=== PATIENT | female | born 1985 | race Caucasian/White ===

== ENCOUNTER → 2016-03-01 | Outpatient (CLI) | payer OTHER ==
--- NOTE | 2016-03-01 16:19 | US ---
March 01, [address] Rushing, Thank you for allowing us to see your patient regarding anatomy. As you know she is a 30 year-old gr avida 1, para 0. Her due date is 07/18/16 which is based on . Her current gestational age based o n this dating is 20 weeks 1 days. She was seen previously for sequential screen which was normal with 1:1700 DSR. Number of fetuses: 1 Placental location: posterior 1.4 cm from the os Cord Insertion: Central presentation: vertex Cervix: 3.2-3.7 cm MVP: 4.9 cm The adnexa were evaluated. No pathology was seen. Right ovary not seen Left ovary seen Measurements: Biparietal diameter: 50 mm 21 weeks, 1 days Head circumference: 176 mm 20 weeks, 1 days Abdominal circumference: 156 mm 20 weeks, 6 days Femur length: 32 mm 20 weeks, 1 days Humerus length: 31 mm 20 weeks, 2 days Transcerebellar diameter: 21 mm 19 weeks, 6 days Average ultrasound age: 20 weeks, 4 days Estimated weight: 352 gm weight percentile: 61 % ANATOMY Upper extremities: Normal Lower extremities: Normal Supratentorial brain: Normal Lateral ventricle: 5.0 mm Posterior fossa: Normal Cisterna Magna: 4.0 mm Spine: Normal Nuchal fold: 4.1 mm Face: Normal nose, lip, profile, alveolar ridge Heart: Normal rate, rhythm, axis, 4 chamber view, LVOT, RVOT, IVS AA, DA seen. Inflows seen. Limit ed 3VT view. LVEIF seen,. Stomach: Normal Diaphragm: NOrmal Umbilical cord insertion: Normal Right kidney: Normal Left kidney: Normal Bladder: Normal Number of cord vessels: Three. Impression: This is a 30 year-old 1, para 0 at 20 weeks, 1 days gestation. 1. SIUP with biometry cw ga of 20 weeks. NL MVP. No anatomic abnormalities noted. 2. An echogenic intracardiac focus (EIF) was noted. This focus represents a prominent papillary musc le that is of no clinical significance except for a weak association with Down syndrome. No other mar kers for aneuploidy were visualized. In the absence of other sonographic markers or a high risk hist ory for Down syndrome, this is likely an incidental finding. The finding was discussed with the patient and results of her sequential screen were reviewed. I exp lained that the only way to exclude the diagnosis of a chromosome abnormality is with amniocentesis. Risks and benefits of amniocentesis were reviewed. Given the normal ultrasound findings otherwise a nd her reassuring sequential screen the risk of procedure related loss is likely greater t jacob the risk of Down syndrome with an EIF as an isolated finding. 3. Placenta 1.4 cm from the os- I reviewed that with newest guidelines this is considered normal but if you desire final placental location evaluation, repeat evaluation could occur at 28-30 weeks with growth. Thank you for allowing me to see your patient. Approximately 15 minutes was spent with the patient a nd 15 was spent discussing her issues. Roxanna Herrera MD Diagnosis Division of Maternal Medicine Department of Obstetrics and Gynecology [facility]
--- NOTE | 2016-03-01 19:15 | US ---
Complete Detailed Obstetrical Sonography Clinical History: 30-year-old female presenting for a anatomic screen and biometry. TECHNIQUE: A curvilinear 5 MHz transducer was used to sonographically evaluate the fetus and the plac enta. M-Mode Doppler is used. Multiple cine clips are stored on PACS. Dr. Roxanna Herrera is present. S upplementary endovaginal pelvic sonography of the maternal cervix is also provided. COMPARISON STUDY: First trimester obstetrical sonography, dated January 05, 2016. LMP: October 12, 2015, indicating an age of 20 weeks 1 day, and an estimated date of delivery of July 18, 2016. FINDINGS: Again, there is a single viable intrauterine gestation, with the fetus cephalic in presenta tion. The maternal cervical length and the placental tip positioning was endovaginally assessed, and the length of the cervix ranges between 3.2 and 3.7 cm. The tip of the placenta terminates 1.4 cm fro m the cervical os, and is seen posteriorly. The heart rate is 144 bpm. The amniotic fluid volum e is appropriate, with a maximal vertical pocket of 4.9 cm. The maternal left ovary measures 2.7 x 1. 4 x 3.3 cm, and the right adnexal region is obscured by bowel gas, and the maternal right ovary is no t identified. The anatomic survey reveals a normal appearance to the supra- and infratentorial structures. Th e lateral ventricular diameter is 5.0 mm, the cisterna magna is 4.0 mm, and the nuchal fold is 4.1 mm . The spine is evaluated in sagittal and transverse planes, and appears normal. The nasolabial anatomy and the alveolar ridge are normal. A sagittal facial profile image is normal, and a ariana al length is 6.7 mm. There is a 4 chambered heart with right and left ventricular outflow tracts, int erventricular septum, aortic and ductal arch, and inflow tracts with a limited three-vessel tracheal view. A left ventricular echogenic intracardiac focus is incidentally observed. The diaphragm is inta ct. The stomach, right and left kidneys, urinary bladder, three-vessel cord, cord insertion, and the upper and lower extremities appear normal. biometry is as follows: The biparietal diameter is 50 mm, corresponding to an age of 21 weeks 1 day +/- 1 week 6 days, which is at the 84th percentile. The head circumference is 176 m, corresponding to an age of 20 weeks 1 day +/- 1 week 4 days, which i s at the 39th percentile. The abdominal circumference is 156 mm, corresponding to an age of 20 weeks 6 days +/- 2 weeks 1 day, which is at the 65th percentile. The femur length is 32 mm, corresponding to an age of 20 weeks 1 day +/- 1 week 6 days, which is at t he 37th percentile. The humeral length is 31 mm, corresponding to an age of 20 weeks 2 days and the transverse cerebellar diameter is 21 mm, corresponding to an age of 19 weeks 6 days +/- 1 week 0 days, for a composite ges tational age of 20 weeks 4 days. This is concordant with menstrual dating. The estimated weight is 352 grams +/- 51 grams, which is 12 ounces +/- 2 ounces, which is at th e 61st percentile. Head circumference to abdominal circumference ratio is normal, measuring 1.13. Femur length to bipari etal diameter ratio is normal measuring 65%, and the femur length to abdominal circumference ratio is 21%. IMPRESSION: There is a single viable intrauterine gestation with concordant biometry and an appropria te amniotic fluid volume with the only anatomic anomaly being a left ventricular echogenic intr acardiac focus, which is seen in isolation with no other aneuploidy markers observed, and of dubious significance. Additionally, the placenta is located posteriorly with the tip only 1.4 cm from the cer vical os. Please refer to Dr. Herrera's specific assessments and recommendations for follow-up.
== END ==
LOC: FIMAGING 14:26
PROVIDERS: ATTEND Obstetrics & Gynecology
DX: Z34.02 Encounter for supervision of normal first pregnancy, second trimester (principal); Z3A.20 20 weeks gestation of pregnancy

== ENCOUNTER → 2016-05-09 | Outpatient (CLI) | payer OTHER | LOC: FIMAGING 09:21 | PROVIDERS: ATTEND Obstetrics & Gynecology | DX: Z34.03 Encounter for supervision of normal first pregnancy, third trimester (principal); Z3A.30 30 weeks gestation of pregnancy ==

== ENCOUNTER 2016-07-08 07:32 | Observation (INO) | payer OTHER ==
--- NOTE | 2016-07-08 08:24 | SOAPPROG ---
SOAP Progress Note Assessment/Plan: Assessment: G1 at 38w4d with dec FM, now resolved Reactive reassuring tracing Fluid WNL Plan: Routine precautions discussed F/u next week as scheduled with Dr. Rushing 07/08/16 08:23 Subjective: G1 at 38w4d, pt of Dr. Rushing's, here for dec FM this AM. After waking up and eating breakfast she hadn't felt baby move. However now after arriving at L&D the baby is moving. c/b Rh neg, s/p Rhogam. Normal genetic screening. Was 1 cm in office. Feeling rare ctx. No LOF or VB. Objective: VS: WNL (Tracevue) Gen: NAD Resp: unlabored CV: RRR Abd: soft, nontender, EFW 7.5# by heidy's, vtx Ext: no edema FHR baseline 130, mod kim, + acc, no decel [place]: 2 ctx Bedside US: Vertex Ant placenta Fluid adequate, DVP = 5.1 cm - Time Spent With Patient Time Spent With Patient: 20 minutes ICD10 Worksheet Patient Problems: Problems Problem Status Onset Decreased movement Acute - ICD10 Problem Qualifiers (1) Decreased movement
== END 2016-07-08 08:50 | disposition home or self-care (01) ==
LOC: FLD 07:32
PROVIDERS: ADMIT Obstetrics & Gynecology; ATTEND Obstetrics & Gynecology
DX: O36.8130 Decreased fetal movements, third trimester, not applicable or unspecified (principal); Z3A.38 38 weeks gestation of pregnancy
CPT/HCPCS: 59025; G0378

== ENCOUNTER 2016-07-20 20:42 | Inpatient (IN) | payer OTHER ==
[2016-07-21] MEDS ORDERED: PROMETHAZINE HCL 25 MG TAB PO ONE (03:00)
[2016-07-21] MEDS ORDERED: ACETAMINOPHEN 500 MG TAB PO ONE ×2 (03:00→10:39)
[2016-07-21] MEDS ORDERED: OXYTOCIN/RINGERS LACTATE 1,000 ML IV PRN (03:48)
[2016-07-21] MEDS ORDERED: LR 1,000 ML IV PRN (03:48)
[2016-07-21] MEDS ORDERED: OLIVE OIL 118 ML BTL MISC PRN (03:48)
[2016-07-21] MEDS ORDERED: EPSOM SALT 454 GM TP PRN (03:48)
[2016-07-21] MEDS ORDERED: TERBUTALINE SULFATE 1 MG/ML VIAL IV PRN (03:48)
[2016-07-21] MEDS ORDERED: fentaNYL 100 MCG/2 ML INJ IVP ONE (03:57)
[2016-07-21] MEDS ORDERED: LR 500 ML IV PRN (03:58)
[2016-07-21 04:00] LABS: % IMMATURE GRANULYOCYTES 0.5 % (0.0-1.1); ABSOLUTE IMMATURE GRANULOCYTES 0.08 10^3/uL (0.00-0.10); ADD DIFF? NO; ADD MORPH? NO; ADD SCAN? NO; ATYPICAL LYMPHOCYTE FLAG 0 (0-99); FRAGMENT RBC FLAG 0 (0-99); HEMATOCRIT 38.2 % (38.0-47.0); HEMOGLOBIN 13.2 g/dL (12.6-16.3); LEFT SHIFT FLG 40 (0-99); LIPEMIA HEMOLYSIS FLAG 90 (0-99); MEAN CELL HEMOGLOBIN 31.4 pg (27.9-34.1); MEAN CELL HEMOGLOBIN CONCENTR. 34.6 g/dL (32.4-36.7); MEAN CELL VOLUME 90.7 fL (81.5-99.8); MEAN PLATELET VOLUME 10.2 fL (8.7-11.7); PLATELET CLUMPS FLAG 0 (0-99); PLATELET COUNT 242 10^3/uL (150-400); RED BLOOD CELL COUNT 4.21 10^6/uL (4.18-5.33); RED CELL DISTRIBUTION WIDTH 13.2 % (11.5-15.2)
[2016-07-21] MEDS ORDERED: OXYTOCIN/RINGERS LACTATE 500 ML IV SCH (04:00)
[2016-07-21] MEDS ORDERED: PHENYLEPHRINE HCL 100 MCG/ML SYR ONE (04:54)
[2016-07-21] MEDS ORDERED: BUPIVACAINE 0.25% 30 ML SDV ONE ×2 (04:54→10:06)
[2016-07-21] MEDS ORDERED: fentaNYL 2MCG/ML/BUP 0.1% RTU 100 ML BAG EP ONE (04:54)
--- NOTE | 2016-07-21 04:59 | GHP ---
[f rep st] HISTORY AND PHYSICAL DATE OF ADMISSION: 07/20/2016 CHIEF COMPLAINT: Painful contractions. HISTORY OF PRESENT ILLNESS: Patient is a 30-year-old 2, para 0, abortus 1 female at 40 weeks and 3 days estimated gestational age with estimated due date of July 18, 2016, who presented to Labor and Delivery with painful contractions last night around 8 p.m. She was observed during this time frame with no significant cervical change noted. Her cervix was 3-4 cm, 90 % effaced, and -1 station. Over the last hour, however, she developed a fever to 38.4 degrees Celsius, in addition to a prolonged period of tachycardia with a baseline in the 170s. Over the last 20 minutes, the heart rate baseline has now returned to the 150s to 160s with accelerations and moderate variability present. The prolonged period of tachycardia with a baseline of 170s, in combination with the fever is concerning for evolving chorioamnionitis, and will plan for induction of labor. The patient reports her contractions have become much more painful in the last hour, as well, and she desires an epidural. PAST MEDICAL HISTORY: Right breast fibroadenoma. PAST SURGICAL HISTORY: Induced . OBSTETRICAL HISTORY: Induced in 2008. ALLERGIES: To iodine and shellfish. COURSE: Rubella nonimmune, normal genetic screening with a normal sequential screen and trio panel. Echogenic intracardiac focus seen on anatomy scan. Patient has received the flu and Tdap vaccines. She had an elevated 1- hour GTT with a normal 3-hour GTT. She is Rh negative, status post RhoGAM. She had a marginal previa, which is now resolved. LABORATORIES: Blood type O negative, antibody screen positive, varicella immune, rubella nonimmune, RPR nonreactive, urine culture negative, hepatitis B surface antigen negative, HIV negative, gonorrhea and chlamydia negative, 1-hour GTT of 157, 3-hour GTT of 78/148/131/90, GBS negative. PHYSICAL EXAMINATION: VITAL SIGNS: Temperature current equals 37.3 degrees Celsius. Temperature max is 38.4 degrees Celsius. Blood pressure 111/68, heart rate 103, respiratory rate 18. HEART RATE TRACINs with accelerations present and moderate variability present. TOCOMETER: Contractions every 3-4 minutes. GENERAL: Mild distress due to pain. Otherwise well-developed, well-nourished patient. CHEST: Clear to auscultation bilaterally. CARDIOVASCULAR: Regular rate and rhythm. ABDOMEN: Gravid and mildly tender due to contractions. PELVIC: Cervical exam 4 cm dilated, 90% effaced, and 0 station. ASSESSMENT: Patient is a 30-year-old 2, para 0 female at 40 weeks and 3 days estimated gestational age with painful latent labor, as well as intrapartum fever and tachycardia concerning for chorioamnionitis. PLAN: 1. Admit to Labor and Delivery for inpatient status. 2. Fever and tachycardia: This is concerning for a diagnosis of chorioamnionitis. Will start patient on Unasyn for treatment and will induce labor with Pitocin. The diagnosis was reviewed with the patient and her and will continue with continuous monitoring. 3. Labor: Will induce with Pitocin per standard protocol. 4. status overall reassuring at this time. Will continue with continuous monitoring. 5. Pain. Desires epidural, so will consult Anesthesia. Fentanyl and nitrous are okay, as well, at this point and have been ordered. 6. GBS negative. /[id number]/MODL MTDD
[2016-07-21] MEDS ORDERED: PHENYLEPHRINE HCL 100 MCG/ML SYR IVP PRN (05:43)
[2016-07-21] MEDS ORDERED: ONDANSETRON 4 MG/2 ML VIAL IVP PRN (05:43)
[2016-07-21] MEDS ORDERED: fentaNYL 2MCG/ML/BUP 0.1% RTU 100 ML EP SCH (06:00)
[2016-07-21] MEDS ORDERED: LR 500 ML IV SCH (06:00)
[2016-07-21] MEDS: AMPICILLIN/SULBACTAM 3 GM in NS 100 ML IV SCH ×3 (06:07→18:17)
--- NOTE | 2016-07-21 06:13 | OBPROG ---
OBG Labor Progress Note Assessment/Plan: Assessment: Pt is a 30 y/o A1 female at 40+3 weeks EGA admitted for induction of labor for chorioamnionitis - Plan: 1) Labor: Minimal assembler for puller over machine the last 2 hours, will start pitocin as planned ( RN had not yet started the pitocin). RN had reported SROM at 0410. A forebag was palpated with AROM completed and more clear fluid noted. 2) status reassuring with cat 1 FHT at this time. No recurrent tachycardia noted. 3) Chorio: +Fever on admission w/ + tachycardia - Unasyn ordered at 0330, now just being started by RN 4) GBS negative 5) Pain well controlled with DEANNA 07/21/16 06:10 Subjective: Pt is comfortable with DEANNA in place. Objective: 07/21/16 01:20 Patient ABO/Rh O NEGATIVE 07/21/16 01:20 - SVE Dilation (cm): 4, 5 Effacement (%): 90 Station: 0 - Procedures Non-surgical Procedures: Amniotomy (with clear fluid noted) Oxytocin Orders Assessment - Pre-Induction/Augmentation Assessment Gestational Age: 40 week(s) and 2 day(s) ICD10 Worksheet Patient Problems: Problems Problem Status Onset Chorioamnionitis in third trimester Acute Decreased movement Acute - ICD10 Problem Qualifiers (1) Chorioamnionitis in third trimester Qualifiers: Fetus number: single or unspecified fetus Qualified Code(s): O41.1230 - Chorioamnionitis, third trimester, not applicable or unspecified
[2016-07-21] MEDS ORDERED: LIDOCAINE 1% 300 MG/30 ML SDV ONE (06:25)
[2016-07-21] MEDS ORDERED: TERBUTALINE SULFATE 1 MG/ML VIAL ONE (06:25)
[2016-07-21] MEDS ORDERED: OXYTOCIN 10 UNIT/ML VIAL ONE (06:25)
[2016-07-21] MEDS ORDERED: AMMONIA AROMATIC 1 EACH AMP IH ONE ×3 (06:25→15:19)
[2016-07-21] MEDS ORDERED: OLIVE OIL 118 ML BTL ONE (06:25)
[2016-07-21] MEDS ORDERED: MISOPROSTOL 200 MCG TAB ONE (06:26)
--- NOTE | 2016-07-21 09:39 | OBPROG ---
OBG Labor Progress Note Assessment/Plan: Assessment: Pt is a 30 y/o A1 female at 40+3 weeks EGA admitted for induction of labor for chorioamnionitis - Plan: 1) Labor: Progressing well. 2) status reassuring with cat 1 FHT at this time. Hx a few early decels and possible late decels that appear to have resolved. 3) Chorio: +Fever on admission w/ + tachycardia on Unasyn 4) GBS negative 5) Pain well controlled with DEANNA 07/21/16 09:40 Subjective: Pt is having chills, no other complaints. Objective: 07/21/16 01:20 Patient ABO/Rh O NEGATIVE 07/21/16 01:20 - SVE Dilation (cm): 8 Effacement (%): 100 Station: +1 - Procedures Non-surgical Procedures: Amniotomy (with clear fluid noted) Oxytocin Orders Assessment - Pre-Induction/Augmentation Assessment Gestational Age: 40 week(s) and 2 day(s) ICD10 Worksheet Patient Problems: Problems Problem Status Onset Chorioamnionitis in third trimester Acute Decreased movement Acute - ICD10 Problem Qualifiers (1) Chorioamnionitis in third trimester Qualifiers: Fetus number: single or unspecified fetus Qualified Code(s): O41.1230 - Chorioamnionitis, third trimester, not applicable or unspecified
[2016-07-21] MEDS: ACETAMINOPHEN 325 MG TAB PO PRN ×2 (09:45→10:52)
[2016-07-21] MEDS ORDERED: fentaNYL 100 MCG/2 ML INJ ONE (10:06)
[2016-07-21] MEDS ORDERED: D5W IV ONE ×2 (10:40→18:00)
[2016-07-21] MEDS ORDERED: GENTAMICIN SULFATE IV ONE ×2 (10:40→18:00)
[2016-07-21] MEDS ORDERED: HEMABATE 250 MCG/1 ML AMP IM ONE ×2 (10:48→11:38)
[2016-07-21] MEDS ORDERED: METHYLERGONOVINE MAL 0.2 MG/ML INJ ONE (10:49)
[2016-07-21 11:22] LABS: ANION GAP 8 mEq/L (8-16); CALCIUM 9.3 mg/dL (8.5-10.4); CARBON DIOXIDE 20 mEq/l (22-31); CHLORIDE 104 mEq/L (97-110); CREATININE 0.5 mg/dL (0.6-1.0); GLOMERULAR FILTRATION RATE > 60; GLUCOSE 86 mg/dL (70-100); POTASSIUM 4.5 mEq/L (3.5-5.2); SODIUM 132 mEq/L (134-144)
[2016-07-21] MEDS: IBUPROFEN 600 MG TAB PO PRN ×2 (12:37→18:42)
--- NOTE | 2016-07-21 12:39 | OBDEL ---
Info Type: Vaginal GBS+: No Indications for Delivery: SROM Vaginal Delivery - Labor and Delivery Onset of Contractions Date: 07/20/16 Onset of Contractions Time: 16:00 Onset of Contractions Type: Augmented Rupture of Membranes Date: 07/21/16 Rupture of Membranes Time: 04:10 Rupture of Membranes Type: Spontaneous Amniotic Fluid Color: Clear Dilation Complete Date: 07/21/16 Dilation Complete Time: 11:46 Placenta Delivery Date: 07/21/16 Placenta Delivery Time: 12:07 Total Hours of Labor: 20 Non-surgical Procedures: Amniotomy (of forebag with clear fluid noted) Laceration: 2nd Degree, Other (Specify) (bilateral labial repaired with 4-0 vicryl) Repair: 2-0, Vicryl Vaginal Sponge Count Correct: Yes Vaginal Needle Count Correct: Yes Vaginal Sweep Performed: Yes EBL: 300 cc Delivery Events: None Delivery Comment: Pt was admitted for observation overnight. She proceed to have a fever to 38.4C , and the plan was to start pitocin for induction. However, she proceed to have SROM prior to pitocin being administered. She was then augmented with pitocin. Unasyn was started for chorioamnionitis. She had persistent fevers, so gentamycin was added. She pushed only 15 minutes and delivered a male in the ABIGAIL position that then restituted back to [facility] and delivered with left shoulder anterior. Baby placed on maternal abdomen for 2 minutes, then cord clamped x 2 and cut. Cord segment obtained for TOP LIFT NAILER use for cultures. Cord blood obtained. Placenta delivered easily. Uterus massaged and tone improved with pitocin. Midline 2nd degree and small bilateral labial lacerations noted and repaired. 2nd degree repaired with crown stitch using 2- 0 vicryl and bilateral labials repaired wtih 4-0 vicryl interrupted. Mother and baby in stable and good condition. Baby taken to nursery per standard chorioamnionitis protocol. EBL 300cc. Data Fernández Delivery Date: 07/21/16 Delivery Time: 10:02 RAMSEY: 07/18/16 Gestational Age: 40 week(s) and 3 day(s) Sex of Infant: Male Score (1 Min): 8 Score (5 Min): 8 ICD10 Worksheet Patient Problems: Problems Problem Status Onset Chorioamnionitis in third trimester Acute (spontaneous vaginal delivery) Acute Decreased movement Acute - ICD10 Problem Qualifiers (1) Chorioamnionitis in third trimester Qualifiers: Fetus number: single or unspecified fetus Qualified Code(s): O41.1230 - Chorioamnionitis, third trimester, not applicable or unspecified (2) (spontaneous vaginal delivery)
[2016-07-21] MEDS ORDERED: HYDROCORTISONE 0.5% CREAM TP PRN (12:40)
[2016-07-21] MEDS ORDERED: SIMETHICONE 80 MG TAB CHEW PO PRN (12:40)
[2016-07-21] MEDS ORDERED: GENTAMICIN PHARMACY TO DOSE MISC ONE ×2 (12:45→14:30)
[2016-07-21] MEDS ORDERED: GENTAMICIN 80 MG/NACL 100 ML IV ONE (13:00)
[2016-07-21] MEDS ORDERED: GENTAMICIN 80 MG/NACL 100 ML IV SCH (13:00)
[2016-07-21] MEDS ORDERED: GENTAMICIN PHARMACY TO DOSE MISC SCH (14:30)
[2016-07-21] MEDS: HYDROCODONE/APAP 5/325 TAB PO PRN ×2 (20:40→21:27)
[2016-07-22] MEDS: AMPICILLIN/SULBACTAM 3 GM in NS 100 ML IV SCH ×3 (00:03→12:09)
[2016-07-22] MEDS: IBUPROFEN 600 MG TAB PO PRN ×3 (00:42→19:23)
[2016-07-22] MEDS: HYDROCODONE/APAP 5/325 TAB PO PRN ×4 (04:25→19:23)
[2016-07-22] MEDS ORDERED: MEASLES,MUMPS&RUBELLA VACC/PF 0.5 ML VIAL SC ONE (07:55)
--- NOTE | 2016-07-22 08:02 | OBPP ---
Progress Note Assessment/Plan: Assessment: 30 y.o. female s/p PPD #1. Chorioamniotis with delivery and patient has been afebrile overnight and reports feeling better. Remains fatigued. with assistance. Plan: Continue antibiotics until patient is afebrile for 24 hours. Continue to monitor for S&S of infection. consult. Routine care and orders. 07/22/16 07:58 Subjective: Reports feeling better since delivery, but fatigued. Reports good pain control and small vaginal bleeding. infant in NICU with assistance. Remains on antibiotics for chorioamniotis. Eating and drinking well without nausea or vomiting. Ambulating well without vertigo. Appropriate mood with good support system. Objective: 07/21/16 01:20 07/21/16 11:00 Patient ABO/Rh O NEGATIVE 07/21/16 01:20 Temp Pulse Resp BP Pulse Ox 36.4 C 98 18 91/57 L 97 07/21/16 20:55 07/21/16 20:55 07/21/16 20:55 07/21/16 20:55 07/21/16 20:55 Uterine Position/Fundal Height: Umbilicus -1, Midline Uterine Tone: Firm Physical Exam - Physical Exam General Appearance: WD/WN, alert EENT: normal ENT inspection Neck: non-tender, full range of motion, normal inspection Respiratory: lungs clear, normal breath sounds Cardiac/Chest: regular rate, rhythm Abdomen: non-tender, soft Extremities: normal range of motion, non-tender, normal inspection Back: Normal inspection Skin: normal color, warm/dry Neuro/Psych: alert, normal mood/affect, oriented x 3
[2016-07-22] MEDS: DOCUSATE SODIUM 100 MG CAP PO PRN (09:04)
[2016-07-22 10:24] LABS: % IMMATURE GRANULYOCYTES 0.9 % (0.0-1.1); ABSOLUTE IMMATURE GRANULOCYTES 0.14 10^3/uL (0.00-0.10); ADD DIFF? NO; ADD MORPH? NO; ADD SCAN? NO; ATYPICAL LYMPHOCYTE FLAG 0 (0-99); FRAGMENT RBC FLAG 0 (0-99); HEMATOCRIT 32.3 % (38.0-47.0); LEFT SHIFT FLG 60 (0-99); LIPEMIA HEMOLYSIS FLAG 90 (0-99); MEAN CELL HEMOGLOBIN 31.3 pg (27.9-34.1); MEAN CELL HEMOGLOBIN CONCENTR. 34.1 g/dL (32.4-36.7); MEAN CELL VOLUME 91.8 fL (81.5-99.8); MEAN PLATELET VOLUME 9.9 fL (8.7-11.7); PLATELET CLUMPS FLAG 0 (0-99); PLATELET COUNT 215 10^3/uL (150-400); RED BLOOD CELL COUNT 3.52 10^6/uL (4.18-5.33); RED CELL DISTRIBUTION WIDTH 13.5 % (11.5-15.2)
[2016-07-22] MEDS ORDERED: GENTAMICIN SULFATE 360 MG in D5W 100 ML IV SCH (17:00)
[2016-07-22] MEDS: IRON POLYSAC/IRON HEME 28 MG TAB PO SCH (19:23)
[2016-07-22 22:15] VITALS: O2SAT 97
[2016-07-23] MEDS: HYDROCODONE/APAP 5/325 TAB PO PRN ×2 (01:55→06:19)
[2016-07-23] MEDS: IBUPROFEN 600 MG TAB PO PRN (06:19)
[2016-07-23 10:08] VITALS: BP 98/64; PULSE 70; RESP 16; TEMP 96
[2016-07-23] MEDS: IRON POLYSAC/IRON HEME 28 MG TAB PO SCH (10:32)
[2016-07-23] MEDS: DOCUSATE SODIUM 100 MG CAP PO PRN (10:32)
--- NOTE | 2016-07-23 11:50 | OBPP ---
Progress Note Assessment/Plan: Assessment: Pt is a 30 y/o A1 female PPD#2 s/p complicated by chorioamnionitis - Plan: 1) Discharge home 2) O neg, baby O neg. RNI s/p MMR 3) Chorioamnionitis s/p ABX until afebrile x 24 hrs. Pt currently afebrile > 24 hours and feeling well. 4) F/U in 6 weeks or sooner prn. Call for heavy bleeding, fevers, pain. 07/23/16 11:49 Subjective: Pt ambulating, voiding, pain well controlled, lochia diminishing, breast feeding progressing. Objective: 07/22/16 09:20 07/21/16 11:00 Patient ABO/Rh O NEGATIVE 07/21/16 01:20 Temp Pulse Resp BP Pulse Ox 35.6 C L 70 16 98/64 L 97 07/23/16 08:00 07/23/16 08:00 07/23/16 08:00 07/23/16 08:00 07/22/16 22:00 Uterine Position/Fundal Height: Umbilicus -1 Uterine Tone: Firm
--- NOTE | 2016-07-23 11:54 | OBGCSDC ---
General Delivery Information - General Info : 2 Para: 1 Abortions: 1 Delivery Physician/CNM: Deb Rushing Admission Date: 07/20/16 Labs: Patient ABO/Rh O NEGATIVE 07/21/16 01:20 Hct 32.3 % (38.0-47.0) L 07/22/16 09:20 Vaginal - Diagnosis Labor: Augmented Presentation at Delivery: Vertex Rupture of Membranes Type: Spontaneous Amniotic Fluid Color: Clear Laceration: 2nd Degree, Other (Specify) (bilateral labial repaired with 4-0 vicryl) Repair: 2-0, Vicryl Delivery Events: None - Operations/Procedures Non-surgical Procedures: Amniotomy (of forebag with clear fluid noted) L&D Analgesia/Anesthesia Type: Epidural - Hospital Course Antepartum: uncomplicated Intrapartum: chorioamnionitis, treated with IV unasyn and gentamycin : Treated with ABX until afebrile x 24 hours, remained afebrile x 24 hrs after ABX stopped. s/p MMR vaccine. RH neg, baby RH neg. - Delivery Non-surgical Procedures: Amniotomy (of forebag with clear fluid noted) L&D Analgesia/Anesthesia Type: Epidural [place] Data Fernández Delivery Date: 07/21/16 Delivery Time: 12:02 RAMSEY: 07/18/16 Gestational Age: 40 week(s) and 5 day(s) Sex of Infant: Male [place] Weight (gm): 3685.438 g Score (1 Min): 8 Score (5 Min): 8 Discharge Information - Discharge Information Discharge Medications: Acetaminophen w/Codeine, Ibuprofen Condition: Good Instruction/Follow Up: Six Weeks Discharge Physician/ZAINAM: Deb Rushing
== END 2016-07-23 14:01 | disposition home or self-care (01) | DRG 775 ==
LOC: FLD 20:42 → OBSVTOIN 22:51 → FOB 07-21 14:20
PROVIDERS: ADMIT Obstetrics & Gynecology; ATTEND Obstetrics & Gynecology
DX: O41.1230 Chorioamnionitis, third trimester, not applicable or unspecified (principal); Z37.0 Single live birth; Z3A.40 40 weeks gestation of pregnancy; O76 Abnormality in fetal heart rate and rhythm complicating labor and delivery; O70.1 Second degree perineal laceration during delivery
CPT/HCPCS: J0295; J2210; J2370; J2590; J3010; J3105